=== PATIENT | female | born 1995 | race American Indian/Alaskan Native ===

== ENCOUNTER 2022-01-16 09:39 | Outpatient (CLI) | payer MEDICAID ==
[2022-01-16 10:58] LABS: Bilirubin,Urine NEG (Negative); Blood,Urine NEG (Negative); Color,Urine Yellow (Yellow); Protein,Urine <15 mg/dL mg/dL (Negative); Urobilinogen,Urine < 2.0 mg/dL (<2.0)
[2022-01-16] MEDS ORDERED: LACTATED RINGERS 500 ML IV ONE (11:00)
[2022-01-16 11:03] LABS: Bacteria,Urine 1+ /HPF (Negative); Mucus,Urine 3+ /HPF
[2022-01-16 11:49] VITALS: BP 113/65
== END 2022-01-16 12:23 | disposition home or self-care (01) ==
LOC: TRG 09:39 → APU 09:42 → TRG 12:23
PROVIDERS: ATTEND Obstetrics & Gynecology
DX: O42.912 Preterm premature rupture of membranes, unspecified as to length of time between rupture and onset of labor, second trimester (principal); Z3A.26 26 weeks gestation of pregnancy
CPT/HCPCS: 36415; 59025; 81001; 84112; 87086

== ENCOUNTER 2022-04-08 16:47 | Inpatient (IN) | payer MEDICAID ==
--- NOTE | 2022-04-08 18:05 | History and Physical Report ---
History of Present Illness Date of examination: 04/08/22 Date of admission: 04/08/22 17:03 Chief complaint: IOL per [facility] recommendation. History of present illness: Pt is a 26 y.o. @ 37.1 wks, who presented for her visit today. Per records that she had with her from [facility], she is to be delivered today d/t abnormal elevated umbilical dopplers and IUGR. She was being followed by [facility] d/t IUGR. Her last BPP was today was 03/10. She did have abnormal dopplers today, so delivery was recommended. Her last growth u/s was 03/31, EFW 8% (5-1). Today patient has c/o chest soreness and tightness. She has no c/o shortness of breath, heart palpitations or lightheadedness. Also of note, pt admitted to marijuana use during and did not start care until 25+ wks of . EDC Confirmation: 04/28/2022 Gestational Age: 37.1 weeks on admission Past History : 3 Term Births: 1 Premature Births: 1 Living Children: 2 Para: 2 Mult. Births: 0 Prev : 0 Aborta: 0 Elect. Ab: 0 Spont. Ab: 0 Ectopics: 0 # 1 Delivery date: 07/18/2017 Weeks Gestation: 38 labor: no Delivery type: Hours of labor: 12 Anesthesia type: epidural Delivery location: [place] Infant Sex: Male weight: 4-? Name: Cem # 2 Delivery date: 08/24/2018 Weeks Gestation: 36 labor: yes Delivery type: Hours of labor: 10 Anesthesia type: epidural Delivery location: [place] [facility] Sex: Female weight: 4-? Name: Maria Ines Comments: PROM Past Medical History: Reviewed and updated today: Anemia Past Surgical History: Reviewed and updated today: Left Knee Arthroscopy (2012) Right Knee Arthroscopy (2013) Family History Summary: Other Family Member - Has No Family History of Ovarvian Cancer - Entered On: 01/17/2022 Other Family Member - Has No Family History of Colon Cancer - Entered On: 01/17/2022 Other Family Member - Has No Family History of Breast Cancer - Entered On: 01/17/2022 Other Family Member - Has Family History of Hypertension - Entered On: 01/17/2022 Social History: Marital Status: Children: 2 Occupation: [employer] Smoking History: Patient is a former smoker. Risk Factors: Smoked Tobacco Use: Current every day smoker Cigarettes: Yes -- 1/2 pack(s) per day, Year Started: 2018 Smokeless Tobacco Use: Never Counseled to Quit/Cut Down: yes Passive Smoke Exposure: no HIV High Risk Behavior: low risk Caffeine Use: 0 drinks per day Exercise: yes Times/wk: 7 Seatbelt Use: 100 % No Dietary Counseling Reason: pn yes Alcohol Use: yes Drinks per day: social Drug Use: yes Drug of Choice: marijuana Past Medical History Surgery (Non-machine ii cutter): Left Knee Arthroscopy (2012) Right Knee Arthroscopy (2013) Abnormal PAP: negative Uterine Anomaly: negative Social Hx: Marital Status: Children: 2 Occupation: [employer] Smoking History: Patient is a former smoker. Infection History Hx of STD: none HIV Risk Eval: low risk Hepatitis B Risk Eval: low risk Personal hx. of genital herpes: no Genetic History Congenital Heart Defect: Mom: no Dad: no Bassem Disease: Mom: no Dad: no Thalassemia Mom: no Dad: no Neural Tube Defect Mom: no Dad: no Down's Syndrome Mom: yes Dad: no Comments: Distant cousin Robert-Sachs Mom: no Dad: no Sickle Cell Disease/Trait Mom: no Dad: no Hemophilia Mom: no Dad: no Muscular Dystrophy Mom: no Dad: no Cystic Fibrosis Mom: no Dad: no [place] Chorea Mom: no Dad: no Mental Retardation Mom: no Dad: no Fragile X Mom: no Dad: no Other Genetic/Chromosomal Disorder Mom: no Dad: no Child w/other defect Mom: no Dad: no Enviromental Exposures Xray Exposure: no Medication, drug, or alcohol use since LMP: yes Exposure to Cat Liter: no Active Medications (reviewed today): None Current Allergies (reviewed today): No known allergies Past History Past Medical History: hematologic disorders (Anemia) Past Surgical History: other (Right and left knee arthroscopy. ) Family/Genetic History: hypertension Social history: no significant social history, - Obstetrical History Expected Date of Delivery: 04/28/22 Actual Gestation: 37 Week(s) 1 Day(s) : 3 Para: 2 Hx # Term Pregnancies: 1 Number of Pregnancies: 1 (Late at 36 wks) Spontaneous Abortions: 0 Induced : 0 Number of Living Children: 2 Medications and Allergies Allergies Allergy/AdvReac Type Severity Reaction Status Date / Time No Known Allergies Allergy Verified 01/16/22 10:22 Home Medications Medication Instructions Recorded Confirmed Last Taken Type No Known Home Medications [No 10/06/15 10/06/15 Unknown History Reported Home Medications] Review of Systems All systems: negative Cardiovascular: other (Chest soreness and tightness with movement) - Vital Signs Vital signs: Vital Signs Pulse Pulse Ox 59 L 100 04/08/22 17:25 04/08/22 17:25 Temp Pulse Resp BP Pulse Ox 98.1 F 80 16 109/69 98 04/08/22 17:38 04/08/22 18:00 04/08/22 17:38 04/08/22 17:27 04/08/22 18:00 Pt states that she has some chest soreness with movement. Denies feeling lightheaded, short of breath, and heart palpitations. - Physical Exam Cardiovascular: Regular rate Lungs: Positive: Normal air movement Abdomen: Positive: normal appearance, soft Genitourinary (Female): Positive: normal external genitalia, normal perenium Vulva: both: normal Vagina: Positive: normal moisture Uterus: Positive: enlarged Extremities: Positive: normal - Obstetrical FHR: category 1 Cervical Dilatation: 0.5 (soft, posterior) Cervical Effacement Percentage: 50 station: -3 Uterine Contraction Pattern: Irregular Uterine Tone Measurement Phase: Resting Uterine Contraction Intensity: Mild Results Result Diagrams: 04/08/22 18:10 All other labs normal. GBS NEGATIVE HBsAg Screen Negative Negative *1 RPR Non Reactive Non Reactive *2 Rubella Antibodies, IgG 8.90 index Immune >0.99 *3 Non-immune <0.90 Equivocal 0.90 - 0.99 Immune >0.99 ABO Grouping O *4 Rh Factor Positive *5 Please note: Prior records for this patient's ABO / Rh type are not available for additional verification. Antibody Screen Negative Negative *6 WBC 6.9 x10E3/uL 3.4-10.8 *7 RBC [L] 3.33 x10E6/uL 3.77-5.28 *8 Hemoglobin [L] 10.9 g/dL 11.1-15.9 *9 Hematocrit [L] 31.9 % 34.0-46.6 *10 MCV 96 fL 79-97 *11 MCH 32.7 pg 26.6-33.0 *12 MCHC 34.2 g/dL 31.5-35.7 *13 RDW [L] 11.4 % 11.7-15.4 *14 Platelets 322 x10E3/uL 150-450 *15 Neutrophils 60 % Not Estab. *16 Lymphs 29 % Not Estab. *17 Monocytes 8 % Not Estab. *18 Eos 2 % Not Estab. *19 Basos 1 % Not Estab. *20 ! Immature Cells <No Reported Value> *21 Neutrophils (Absolute) 4.1 x10E3/uL 1.4-7.0 *22 Lymphs (Absolute) 2.0 x10E3/uL 0.7-3.1 *23 Monocytes(Absolute) 0.5 x10E3/uL 0.1-0.9 *24 Eos (Absolute) 0.2 x10E3/uL 0.0-0.4 *25 Baso (Absolute) 0.0 x10E3/uL 0.0-0.2 *26 ! Immature Granulocytes 0 % Not Estab. *27 ! Immature Grans (Abs) 0.0 x10E3/uL 0.0-0.1 *28 ! NRBC <No Reported Value> *29 Hematology Comments: <No Reported Value> *30 Tests: (2) 833268 7+Alc-Unbund ([id number]) ! Amphetamines, Urine Negative ng/mL Quiwvx=2337 *31 Amphetamine test includes Amphetamine and Methamphetamine. Barbiturate Negative ng/mL Agajnf=353 *32 Benzodiazepines Negative ng/mL Rgnhuv=553 *33 Cannabinoid See Final Results ng/mL Cutoff=50 *34 Tests: (3) Cannabinoid Confirmation, Ur ([id number]) ! Cannabinoid [A] Positive Cutoff=50 *35 ! Carboxy THC Conf, MS, UR 128 ng/mL Cutoff=15 *36 Tests: (4) [id number] 7+Alc-Unbund ([id number]) ! Cocaine (Metab.) Negative ng/mL Gujbqo=379 *37 Opiates Negative ng/mL Raejit=332 *38 Opiate test includes Codeine and Morphine only. Phencyclidine Negative ng/mL Cutoff=25 *39 ! Ethanol, Urine Negative % Cutoff=0.020 *40 Tests: (5) Ct, Ng, Trich vag by ONEL ([id number]) Chlamydia by ONEL Negative Negative *41 Gonococcus by ONEL Negative Negative *42 Trich vag by ONEL Negative Negative *43 Tests: (6) HCV Antibody RFX to Quant PCR ([id number]) HCV Ab <0.1 s/co ratio 0.0-0.9 *44 Tests: (7) Interpretation: ([id number]) ! Interpretation: SPRCS *45 Negative Not infected with HCV, unless recent infection is suspected or other evidence exists to indicate HCV infection. Tests: (8) HB Solu + Rflx Frac ([id number]) Hemoglobin (Hgb) Solubility Negative Negative *46 Tests: (9) HIV Ab/p24 Ag with Reflex ([id number]) HIV Ab/p24 Ag Screen Non Reactive Non Reactive *47 HIV Negative HIV-1/HIV-2 antibodies and HIV-1 p24 antigen were NOT detected. There is no laboratory evidence of HIV infection. Tests: (10) Gest. Diabetes 1-Hr Screen ([id number]) ! Gestational Diabetes Screen 65 mg/dL 65-139 *48 According to ADA, a glucose threshold of >139 mg/dL after 50-gram load identifies approximately 80% of women with gestational diabetes mellitus, while the sensitivity is further increased to approximately 90% by a threshold of >129 mg/dL. Assessment and Plan A: 26 y.o. @ 37.1 wks. IOL d/t IUGR, abnormal dopplers. Chest soreness with movement. Marijuana use during , late care. - Patient Problems (1) IUGR (intrauterine growth restriction) affecting care of mother Current Visit: Yes Status: Acute Qualifiers: Fetus number: single or unspecified fetus Trimester: third trimester Qualified Code(s): O36.5930 - Maternal care for other known or suspected poor growth, third trimester, not applicable or unspecified Plan to address problem: Admit to labor and delivery. Initiate IV. Draw admission labs. Pain management: IV pain medication and epidural placement. Initiate IOL: Cervidil. Anticipate . (2) 37 or more weeks gestation of Current Visit: Yes Status: Acute Plan to address problem: Monitor status through EFM. (3) Abnormal test Current Visit: Yes Status: Acute Plan to address problem: Elevated umbilical dopplers. Continuous EFM ordered. (4) Costochondritis Current Visit: Yes Status: Acute Plan to address problem: Monitor for worsening chest pain. If chest pain continues, consider ordering an EKG. (5) Late care Current Visit: Yes Status: Acute Plan to address problem: Case management consult after delivery. (6) Marijuana use during Current Visit: Yes Status: Acute Plan to address problem: UDS ordered on admission. Case management consult after delivery.
[2022-04-08] MEDS ORDERED: CARBOPROST TROMETHAMINE 250 MCG/1 ML INJ IM PRN (18:06)
[2022-04-08] MEDS ORDERED: NALOXONE 0.4 MG/1 ML INJ IV PRN (18:06)
[2022-04-08] MEDS ORDERED: ePHEDrine SULFATE 50 MG/1 ML INJ IV PRN (18:06)
[2022-04-08] MEDS ORDERED: METHYLERGONOVINE MALEATE 0.2 MG/ML VIAL IM PRN (18:06)
[2022-04-08] MEDS ORDERED: LIDOCAINE (2%) 20 MG/1 ML VIAL 20 ML MDV INFILTRATI ONE (18:06)
[2022-04-08] MEDS ORDERED: TERBUTALINE 1 MG/1 ML INJ SUB-Q PRN (18:06)
[2022-04-08] MEDS ORDERED: BUTORPHANOL 2 MG/1 ML INJ IV PRN (18:06)
[2022-04-08] MEDS ORDERED: LOPERAMIDE 2 MG CAP PO PRN (18:06)
[2022-04-08] MEDS ORDERED: MINERAL OIL 30 ML ORAL LIQD PO PRN (18:06)
[2022-04-08] MEDS ORDERED: fentaNYL 100 MCG/2 ML INJ IV PRN (18:06)
[2022-04-08] MEDS ORDERED: PROMETHAZINE 25 MG TAB PO PRN (18:06)
[2022-04-08] MEDS ORDERED: OXYTOCIN 10 UNIT/1 ML INJ IM PRN (18:06)
[2022-04-08] MEDS ORDERED: miSOPROStol 200 MCG TAB PR PRN (18:06)
[2022-04-08] MEDS ORDERED: DINOPROSTONE 10 MG VAG SUPP VG ONE (18:06)
[2022-04-08] MEDS ORDERED: ONDANSETRON 4 MG/2 ML INJ IV PRN (18:06)
[2022-04-08] MEDS ORDERED: ACETAMINOPHEN 325 MG TAB PO PRN (18:06)
[2022-04-08] MEDS ORDERED: LACTATED RINGERS 1,000 ML IV SCH (18:15)
[2022-04-08 18:36] LABS: Hematocrit 29.9 % (30.3-42.9); Hemoglobin 10.6 gm/dl (10.1-14.3); Mean Corpuscular HGB Conc 35 % (30-34); Mean Corpuscular Volume 96 fl (79-97); Platelet Count 288 K/mm3 (140-440); Red Blood Count 3.13 M/mm3 (3.65-5.03)
--- NOTE | 2022-04-09 08:07 | Progress Note ---
Assessment and Plan Cervidil to be removed now, pt may do AM care and eat and then start pitocin. - Patient Problems (1) 37 or more weeks gestation of Current Visit: Yes Status: Acute (2) IUGR (intrauterine growth restriction) affecting care of mother Current Visit: Yes Status: Acute Qualifiers: Fetus number: single or unspecified fetus Trimester: third trimester Qualified Code(s): O36.5930 - Maternal care for other known or suspected poor growth, third trimester, not applicable or unspecified (3) Late care Current Visit: Yes Status: Acute (4) Marijuana use during Current Visit: Yes Status: Acute Subjective - Subjective Date of service: 04/09/22 Principal diagnosis: IUP @ 37+2 IOL for IUGR Patient reports: movement normal, contractions, no loss of fluid, no vaginal bleeding Objective - Vital Signs Vital Signs: Vital Signs - 12hr 04/08/22 04/08/22 04/08/22 20:07 20:12 20:17 Temperature Pulse Rate 74 70 62 Respiratory Rate Blood Pressure O2 Sat by Pulse 98 100 98 Oximetry 04/08/22 04/08/22 04/08/22 20:22 20:27 20:32 Temperature Pulse Rate 68 61 71 Respiratory Rate Blood Pressure O2 Sat by Pulse 98 98 98 Oximetry 04/08/22 04/08/22 04/08/22 20:36 20:42 20:46 Temperature Pulse Rate 61 57 L 59 L Respiratory Rate Blood Pressure O2 Sat by Pulse 98 97 97 Oximetry 04/08/22 04/08/22 04/08/22 20:51 20:56 21:01 Temperature Pulse Rate 58 L 59 L 61 Respiratory Rate Blood Pressure O2 Sat by Pulse 97 97 96 Oximetry 04/08/22 04/08/22 04/08/22 21:06 21:11 21:16 Temperature Pulse Rate 60 59 L 59 L Respiratory Rate Blood Pressure O2 Sat by Pulse 97 98 97 Oximetry 04/08/22 04/08/22 04/08/22 21:21 21:26 21:31 Temperature Pulse Rate 64 57 L 55 L Respiratory Rate Blood Pressure O2 Sat by Pulse 97 97 98 Oximetry 04/08/22 04/08/22 04/08/22 21:36 21:41 21:46 Temperature Pulse Rate 66 71 60 Respiratory Rate Blood Pressure O2 Sat by Pulse 98 99 98 Oximetry 0904/08/22 04/08/22 21:51 21:56 22:01 Temperature Pulse Rate 67 59 L 58 L Respiratory Rate Blood Pressure O2 Sat by Pulse 99 99 99 Oximetry 04/08/22 04/08/22 04/08/22 22:06 22:11 22:17 Temperature Pulse Rate 69 62 66 Respiratory Rate Blood Pressure O2 Sat by Pulse 99 99 98 Oximetry 04/08/22 04/08/22 04/08/22 22:21 22:26 22:31 Temperature Pulse Rate 70 63 70 Respiratory Rate Blood Pressure O2 Sat by Pulse 99 98 99 Oximetry 04/08/22 04/08/22 04/08/22 22:36 22:42 22:47 Temperature Pulse Rate 79 67 70 Respiratory Rate Blood Pressure O2 Sat by Pulse 99 97 98 Oximetry 04/08/22 04/08/22 04/08/22 22:51 22:56 23:01 Temperature Pulse Rate 74 71 68 Respiratory Rate Blood Pressure O2 Sat by Pulse 99 98 98 Oximetry 04/08/22 04/08/22 04/08/22 23:06 23:11 23:43 Temperature Pulse Rate 65 77 66 Respiratory Rate Blood Pressure O2 Sat by Pulse 98 99 99 Oximetry 04/08/22 04/08/22 04/08/22 23:46 23:48 23:53 Temperature 97.9 F Pulse Rate 61 63 Respiratory Rate Blood Pressure O2 Sat by Pulse 100 99 Oximetry 04/08/22 04/09/22 04/09/22 23:58 00:03 00:08 Temperature Pulse Rate 71 76 75 Respiratory Rate Blood Pressure O2 Sat by Pulse 99 100 100 Oximetry 04/09/22 04/09/22 04/09/22 00:13 00:18 00:23 Temperature Pulse Rate 69 82 72 Respiratory Rate Blood Pressure O2 Sat by Pulse 99 98 99 Oximetry 04/09/22 04/09/22 04/09/22 00:28 00:33 00:38 Temperature Pulse Rate 82 65 66 Respiratory Rate Blood Pressure O2 Sat by Pulse 100 100 99 Oximetry 04/09/22 04/09/22 04/09/22 00:43 00:48 00:53 Temperature Pulse Rate 61 72 70 Respiratory Rate Blood Pressure O2 Sat by Pulse 98 99 98 Oximetry 04/09/22 04/09/22 04/09/22 00:58 01:03 01:08 Temperature Pulse Rate 70 64 75 Respiratory Rate Blood Pressure O2 Sat by Pulse 99 98 99 Oximetry 04/09/22 04/09/22 04/09/22 01:13 01:18 01:23 Temperature Pulse Rate 69 74 82 Respiratory Rate Blood Pressure O2 Sat by Pulse 99 99 99 Oximetry 04/09/22 04/09/22 04/09/22 01:28 01:33 01:41 Temperature Pulse Rate 78 69 62 Respiratory Rate Blood Pressure O2 Sat by Pulse 98 100 100 Oximetry 04/09/22 04/09/22 04/09/22 01:46 01:51 01:56 Temperature Pulse Rate 72 59 L 63 Respiratory Rate Blood Pressure O2 Sat by Pulse 99 98 98 Oximetry 04/09/22 04/09/22 04/09/22 02:01 02:06 02:11 Temperature Pulse Rate 66 65 63 Respiratory Rate Blood Pressure O2 Sat by Pulse 99 99 99 Oximetry 04/09/22 04/09/22 04/09/22 02:16 02:21 02:26 Temperature Pulse Rate 77 82 60 Respiratory Rate Blood Pressure O2 Sat by Pulse 99 99 98 Oximetry 04/09/22 04/09/22 04/09/22 02:31 02:36 02:41 Temperature Pulse Rate 64 60 61 Respiratory Rate Blood Pressure O2 Sat by Pulse 98 98 98 Oximetry 04/09/22 04/09/22 04/09/22 02:46 02:51 02:55 Temperature Pulse Rate 59 L 64 75 Respiratory Rate Blood Pressure 99/64 O2 Sat by Pulse 98 98 Oximetry 04/09/22 04/09/22 04/09/22 02:57 03:02 03:07 Temperature 98.0 F Pulse Rate 57 L 61 Respiratory Rate Blood Pressure O2 Sat by Pulse 98 98 Oximetry 04/09/22 04/09/22 04/09/22 03:12 03:17 03:22 Temperature Pulse Rate 65 59 L 57 L Respiratory Rate Blood Pressure O2 Sat by Pulse 98 98 99 Oximetry 04/09/22 04/09/22 04/09/22 03:27 03:32 03:37 Temperature Pulse Rate 61 69 67 Respiratory Rate Blood Pressure O2 Sat by Pulse 98 99 99 Oximetry 04/09/22 04/09/22 04/09/22 03:40 03:42 03:47 Temperature Pulse Rate 76 66 64 Respiratory Rate Blood Pressure O2 Sat by Pulse 94 99 99 Oximetry 04/09/22 04/09/22 04/09/22 03:52 03:57 04:02 Temperature Pulse Rate 60 61 64 Respiratory Rate Blood Pressure O2 Sat by Pulse 99 98 99 Oximetry 04/09/22 04/09/22 04/09/22 04:07 04:12 04:17 Temperature Pulse Rate 66 66 76 Respiratory Rate Blood Pressure O2 Sat by Pulse 97 98 99 Oximetry 04/09/22 04/09/22 04/09/22 04:22 04:27 04:32 Temperature Pulse Rate 83 69 59 L Respiratory Rate Blood Pressure O2 Sat by Pulse 100 99 98 Oximetry 04/09/22 04/09/22 04/09/22 04:37 04:42 04:47 Temperature Pulse Rate 60 66 63 Respiratory Rate Blood Pressure O2 Sat by Pulse 99 98 98 Oximetry 04/09/22 04/09/22 04/09/22 04:52 04:57 05:02 Temperature Pulse Rate 67 63 72 Respiratory Rate Blood Pressure O2 Sat by Pulse 99 98 98 Oximetry 04/09/22 04/09/22 04/09/22 05:07 05:12 05:17 Temperature Pulse Rate 67 78 69 Respiratory Rate Blood Pressure O2 Sat by Pulse 98 98 98 Oximetry 04/09/22 04/09/22 04/09/22 05:22 05:27 05:32 Temperature Pulse Rate 72 70 75 Respiratory Rate Blood Pressure O2 Sat by Pulse 98 98 99 Oximetry 04/09/22 04/09/22 04/09/22 05:37 05:42 05:47 Temperature Pulse Rate 80 70 72 Respiratory Rate Blood Pressure O2 Sat by Pulse 98 99 98 Oximetry 04/09/22 04/09/22 04/09/22 05:52 06:01 06:04 Temperature Pulse Rate 65 69 66 Respiratory Rate Blood Pressure 110/70 O2 Sat by Pulse 98 99 Oximetry 04/09/22 04/09/22 04/09/22 06:06 06:07 06:11 Temperature 97.4 F L Pulse Rate 70 60 Respiratory Rate Blood Pressure O2 Sat by Pulse 99 100 Oximetry 04/09/22 04/09/22 04/09/22 06:16 06:21 06:26 Temperature Pulse Rate 72 66 58 L Respiratory Rate Blood Pressure O2 Sat by Pulse 99 98 99 Oximetry 04/09/22 04/09/22 04/09/22 06:31 06:36 06:41 Temperature Pulse Rate 61 64 68 Respiratory Rate Blood Pressure O2 Sat by Pulse 100 100 100 Oximetry 04/09/22 04/09/22 04/09/22 06:46 06:51 06:56 Temperature Pulse Rate 59 L 57 L 65 Respiratory Rate Blood Pressure O2 Sat by Pulse 99 99 98 Oximetry 04/09/22 04/09/22 04/09/22 07:01 07:04 07:05 Temperature 97.9 F Pulse Rate 67 64 Respiratory 16 Rate Blood Pressure 103/55 O2 Sat by Pulse 98 100 Oximetry 04/09/22 04/09/22 04/09/22 07:06 07:15 07:20 Temperature Pulse Rate 95 H 77 59 L Respiratory Rate Blood Pressure O2 Sat by Pulse 98 99 98 Oximetry 04/09/22 04/09/22 04/09/22 07:25 07:30 07:35 Temperature Pulse Rate 64 61 79 Respiratory Rate Blood Pressure O2 Sat by Pulse 99 100 100 Oximetry 04/09/22 04/09/22 04/09/22 07:40 07:45 07:50 Temperature Pulse Rate 72 72 85 Respiratory Rate Blood Pressure O2 Sat by Pulse 99 98 98 Oximetry 04/09/22 04/09/22 04/09/22 07:55 07:57 08:00 Temperature Pulse Rate 74 69 76 Respiratory Rate Blood Pressure O2 Sat by Pulse 99 94 98 Oximetry - Exam Cardiovascular: Regular rate Lungs: Normal air movement Abdomen: Present: normal appearance, soft Vulva: both: normal Uterus: Present: normal, fundal height above umbilicus FHR: category 1 Uterine Contraction Monitor Mode: External Uterine Contraction Pattern: Irregular Uterine Tone Measurement Phase: Contraction Uterine Contraction Intensity: Mild Extremities: normal - Labs Labs: Abnormal Labs 04/08/22 18:10 RBC 3.13 L Hct 29.9 L MCH 34 H MCHC 35 H RDW 13.0 L Laboratory Results - last 24 hr 04/08/22 04/08/22 04/08/22 18:10 18:10 18:10 WBC 10.1 RBC 3.13 L Hgb 10.6 Hct 29.9 L MCV 96 MCH 34 H MCHC 35 H RDW 13.0 L Plt Count 288 Syphilis IgG/IgM Ab Nonreactive Blood Type O POSITIVE Antibody Screen Negative
[2022-04-09] MEDS: OXYTOCIN DRIP 30 UNITS/500 ML BAG IV SCH ×2 (09:54→12:54)
--- NOTE | 2022-04-09 12:23 | Anesthesia Consultation ---
Anesthesia Consult and Med Hx Date of service: 04/09/22 - Airway Anesthetic Teeth Evaluation: Good ROM Head & Neck: Adequate Mental/Hyoid Distance: Adequate Mallampati Class: Class II Intubation Access Assessment: Good - Pulmonary Exam CTA: Yes - Cardiac Exam Cardiac Exam: RRR - Pre-Operative Health Status ASA Pre-Surgery Classification: ASA2 Proposed Anesthetic Plan: Epidural - Pulmonary Hx Asthma: No COPD: No Hx Pneumonia: No - Cardiovascular System Hx Hypertension: No - Central Nervous System Hx Seizures: No Hx Psychiatric Problems: No - Endocrine Hx Renal Disease: No Hx End Stage Renal Disease: No Hx Hypothyroidism: No Hx Hyperthyroidism: No - Hematic Hx Anemia: Yes (meds) Hx Sickle Cell Disease: No - Other Systems Hx Alcohol Use: No
--- NOTE | 2022-04-09 12:25 | Progress Note ---
Labor Epidural - Labor Epidural Start Time: 11:09 Stop Time: 11:28 Performed by:: VÍCTOR LOVELL Procedure: Patient is requesting epidural for labor and pain. H&P, labs were reviewed. Patient IDed, all questions and concerns were answered, and consent was signed. Timeout was performed at bedside. Patient in sitting position. Sterile prep and drape was performed. 3ml of 1% lidocaine skin wheal at L[3]- L [4]. 17- gauge Tuohy epidural needle was advanced to loss of resistance with air technique cm. Negative CSF negative blood. Epidural catheter advanced to [] centimeters. [negative] Aspiration [negative] test dose. Sterile dressing applied. Patient tolerated procedure.
--- NOTE | 2022-04-09 12:28 | Procedure Note ---
OB Delivery Note - Delivery Date of Delivery: 04/09/22 Economics Department Chair: CELE SOOD Estimated blood loss: 100cc - Vaginal Delivery presentation: vertex Delivery position: OA (HARI) Intrapartum events: other(please specify) (IOL for IUGR) Delivery induction: cervidil Delivery monitor: external FHT, external uterine Route of delivery: Delivery placenta: spontaneous Delivery cord: nuchal cord (x1) Episiotomy: none Delivery laceration: none Anesthesia: epidural Delivery comments: pt with strong urge to push, baby girl birthed over intact perineum - tight nuchal cord, somersaulted through. Infant placed skin to skin, 3 vessel cord clamped and cut after cessation of pulsation. cord blood collected. placenta delivered intact and complete - sent to pathology d/t IUGR. no lacerations to repair. mother and baby LDR stable. all counts correct. mother and remain in stable LDR condition. - A at 1 minute: 7 at 5 minutes: 9 Gender: Female (5#6oz)
[2022-04-09] MEDS ORDERED: NALOXONE 0.4 MG/1 ML INJ IV PRN (13:00)
[2022-04-09] MEDS ORDERED: fentaNYL-BUPIV 2 MCG/ML-0.125% 200 MCG/100 ML BAG EPIDURAL SCH (13:00)
[2022-04-09] MEDS ORDERED: ePHEDrine SULFATE 50 MG/1 ML INJ IV PRN (13:00)
[2022-04-09] MEDS ORDERED: MAGNESIUM HYDROXIDE (MOM) ORAL LIQD UDC PO PRN (15:11)
[2022-04-09] MEDS ORDERED: LANOLIN/ZINC/DIMETHICONE (LANSINOH) 7 GM TP PRN (15:11)
[2022-04-09] MEDS ORDERED: ONDANSETRON 4 MG/2 ML INJ IV PRN (15:11)
[2022-04-09] MEDS ORDERED: BENZOCAINE/MENTHOL 20/0.5% TOP SPRAY 56 GM TP PRN (15:11)
[2022-04-09] MEDS ORDERED: diphenhydrAMINE 25 MG CAP PO PRN (15:11)
[2022-04-09] MEDS ORDERED: PROMETHAZINE 25 MG TAB PO PRN (15:11)
[2022-04-09] MEDS ORDERED: WITCH HAZEL/ GLYCERIN PAD TP PRN (15:11)
[2022-04-09] MEDS: IBUPROFEN 800 MG TAB PO SCH ×2 (17:50→21:58)
[2022-04-09 17:54] LABS: Amphetamine Screen,Urine Negative; Benzodiazepines Screen,Urine Negative; Cocaine Screen,Urine Negative; Methadone Screen,Urine Negative; Opiate Screen,Urine Negative
[2022-04-09 18:21] LABS: Cannabinoid Screen,Urine Positive
[2022-04-09] MEDS ORDERED: TETANUS,DIPH,PERTUSS(ACELL) VACCINE 0.5 ML SYRINGE IM ONE (22:03)
[2022-04-10] MEDS ORDERED: ACETAMINOPHEN 325 MG TAB PO PRN (01:48)
[2022-04-10] MEDS: IBUPROFEN 800 MG TAB PO SCH ×2 (04:30→10:43)
--- NOTE | 2022-04-10 08:17 | Discharge Summary ---
Providers - Providers Date of Admission: 04/08/22 18:06 Date of discharge: 04/10/22 Attending physician: TARAH MANUEL 04/09/22 15:42 Consult to Case Management [CONS] Routine Services Needed at Discharge: Other Notified:: Christelle Phone number called:: [phone] Was contact made?: Yes If yes, spoke with:: Christelle Time called:: 15:44 Comment:: will let marielos know, and call me back Additional Physician Instructions: For late care and THC use during Primary care physician: TARAH MANUEL Hospitalization Reason for admission: induction of labor Delivery: Episiotomy: none Laceration: 1st degree Other procedures: none complications: none Discharge diagnosis: IUP at term delivered baby: female Hospital course: S: Pt doing well. Ambulating, voiding, and passing flatus. BC: Depo or IUD. O: VSS. Minimal vaginal bleeding noted. Perineum intact. A: 26 y.o. s/p . In good condition . P: Discharge home with instructions. Depo ordered before discharge. Pt to schedule visit in the office in 4 weeks. Condition at discharge: Good Disposition: 01 HOME / SELF CARE / HOMELESS - Discharge Diagnoses (1) (normal spontaneous vaginal delivery) Status: Acute Plan - Discharge Medications Prescriptions: Ibuprofen [Motrin] 800 mg PO Q8HR PRN #20 tablet PRN Reason: Pain, Moderate (4-6) - Provider Discharge Summary Activity: routine, no sex for 6 weeks, no heavy lifting 4 weeks, no strenuous exercise Diet: routine Instructions: routine Additional instructions: [] Smoking cessation referral if applicable(refer to patient education folder for contact #) [] Refer to [facility] Booklet Call your doctor immediately for: * Fever > 100.5 * Heavy vaginal bleeding ( >1 pad per hour) * Severe persistent headache * Shortness of breath * Reddened, hot, painful area to leg or breast * Drainage or odor from incision. * Keep incision clean and dry at all times and follow doctor's instructions regarding bathing/showering - Follow up plan Follow up: TARAH MANUEL MD [Primary Care Provider] - 05/09/22 (- Congratulations on the of your baby girl! - Thank you for allowing us to take care of you! - Please schedule your visit in the office in 4 weeks. - Should you have any questions or concerns after discharge, please do not hesitate to call us at .)
[2022-04-10] MEDS ORDERED: PRENATAL VIT27-FE FUMARATE-FOLIC ACID VIT TAB PO SCH (10:00)
[2022-04-10 11:40] LABS: Hematocrit 29.9 % (30.3-42.9); Hemoglobin 9.9 gm/dl (10.1-14.3)
[2022-04-10] MEDS ORDERED: TETANUS,DIPH,PERTUSS(ACELL) VACCINE 0.5 ML SYRINGE IM ONE (12:47)
--- NOTE | 2022-04-10 14:54 | Post Anesthesia Evaluation ---
- Post Anesthesia Evaluation Patient Participated: Yes Airway Patent: Yes Stable Respiratory Function: Yes Nausea/Vomiting: No Temp > 96.8F: Yes Pain Manageable: Yes Adequeate Hydration: Yes Anesthesia Complications: No Block Receding Appropriately: Yes Patient on Ventilator: No
[2022-04-10] MEDS ORDERED: medroxyPROGESTERone ACETATE 150 MG/ML SYRINGE IM SCH (16:38)
[2022-04-10 18:03] VITALS: BP 107/74
== END 2022-04-10 18:24 | disposition home or self-care (01) | DRG 775 ==
LOC: TRG 16:47 → APU 16:50 → TRG 17:02 → LD 17:03 → UNDOADMIN 17:03 → LD 18:06 → OB 04-09 14:57
PROVIDERS: ADMIT Obstetrics & Gynecology; ATTEND Obstetrics & Gynecology
PROC: 10E0XZZ Delivery of Products of Conception, External Approach (ICD-10-PCS; principal; 2022-04-09)
PROC: 3E0R3BZ Introduction of Anesthetic Agent into Spinal Canal, Percutaneous Approach (ICD-10-PCS; 2022-04-09)
PROC: 00HU33Z Insertion of Infusion Device into Spinal Canal, Percutaneous Approach (ICD-10-PCS; 2022-04-09)
PROC: 3E0P7VZ Introduction of Hormone into Female Reproductive, Via Natural or Artificial Opening (ICD-10-PCS; 2022-04-09)
PROC: 3E0234Z Introduction of Serum, Toxoid and Vaccine into Muscle, Percutaneous Approach (ICD-10-PCS; 2022-04-09)
DX: O36.5930 Maternal care for other known or suspected poor fetal growth, third trimester, not applicable or unspecified (principal); Z37.0 Single live birth; Z3A.37 37 weeks gestation of pregnancy; Z20.822 Contact with and (suspected) exposure to COVID-19; M94.0 Chondrocostal junction syndrome [Tietze]; O75.89 Other specified complications of labor and delivery; O99.324 Drug use complicating childbirth; F12.90 Cannabis use, unspecified, uncomplicated; O69.81X0 Labor and delivery complicated by cord around neck, without compression, not applicable or unspecified; Z23 Encounter for immunization
CPT/HCPCS: 36415; 59200; 80307; 85014; 85018; 85027; 86592; 86850; 86900; 86901; 88307; 90471; 90715; G0378; J3490; J1050; J2590; J7120; U0003